=== PATIENT | female | born 2005 | race Caucasian/White ===

== ENCOUNTER 2025-04-05 09:42 | Day surgery (SDC) | payer BC ==
[~2025-04-05 09:42] MED LIST: Propofol 200 MG/20 ML SDV ONE; fentaNYL 100 MCG/2 ML SDV ONE
[2025-04-05] MEDS: Lactated Ringers 1,000 ML IV SCH (10:04)
[2025-04-05] MEDS ORDERED: Propofol 200 MG/20 ML SDV ONE ×2 (12:05→12:15)
== END 2025-04-05 13:26 | disposition home or self-care (01) ==
LOC: VM.SDS 09:42
PROVIDERS: ATTEND Family Medicine
DX: K92.1 Melena (principal); R19.4 Change in bowel habit; Q43.8 Other specified congenital malformations of intestine; Z80.0 Family history of malignant neoplasm of digestive organs; Z79.899 Other long term (current) drug therapy
CPT/HCPCS: 00811; 45380; J2704; J3010; J7120